=== PATIENT | male | born 1990 | race African-American/Black ===

== ENCOUNTER → 2017-08-10 | Outpatient (CLI) | payer OTHER ==
--- NOTE | 2017-08-10 12:08 | RADIOLOGY REPORT (SQ) ---
EXAM DESCRIPTION: ANKLE LEFT COMPLETE COMPLETED DATE/TIME: 08/10/2017 9:19 am REASON FOR STUDY: UNSPECIFIED INJURY OF LEFT ANKLE, INITIAL ENCOUNTER S99.912A UNSPECIFIED INJURY O F LEFT ANKLE, INITIAL ENCOUNTER COMPARISON: None. NUMBER OF VIEWS: Three views. TECHNIQUE: AP, lateral, and oblique radiographic images acquired of the left ankle. LIMITATIONS: None. FINDINGS: MINERALIZATION: Normal. BONES: No acute fracture or dislocation. No worrisome bone lesions. JOINTS: No effusions. SOFT TISSUES: No soft tissue swelling. No foreign body. OTHER: No other significant finding. IMPRESSION: NEGATIVE STUDY OF THE LEFT ANKLE. NO RADIOGRAPHIC EVIDENCE OF ACUTE INJURY. TECHNICAL DOCUMENTATION: JOB ID: [id number] [employer]- All Rights Reserved
== END ==
LOC: OD 09:00
PROVIDERS: ATTEND Nurse Practitioner Family
DX: S99.912A Unspecified injury of left ankle, initial encounter (principal)

== ENCOUNTER → 2017-12-03 | Outpatient (CLI) | payer BC ==
--- NOTE | 2017-12-03 11:17 | RADIOLOGY REPORT (SQ) ---
EXAM DESCRIPTION: FOOT RIGHT COMPLETE COMPLETED DATE/TIME: 12/03/2017 10:58 am REASON FOR STUDY: PAIN IN RIGHT FOOT M79.671 PAIN IN RIGHT FOOT COMPARISON: None. NUMBER OF VIEWS: Three views. TECHNIQUE: AP, lateral and oblique without weight bearing radiographic images acquired of the right foot. LIMITATIONS: None. FINDINGS: MINERALIZATION: Normal. BONES: No acute fracture or dislocation. No worrisome bone lesions. No significant osteophytes. JOINTS: No erosions. No alessandro-articular osteopenia. No chondrocalcinosis. SOFT TISSUES: No swelling. No calcifications. OTHER: No other significant finding. IMPRESSION: NEGATIVE STUDY OF THE RIGHT FOOT. NO ACUTE POST-TRAUMATIC CHANGES. NO EXPLANATION FOR PA IN. TECHNICAL DOCUMENTATION: JOB ID: [id number] [employer]- All Rights Reserved Reading location - IP/workstation name: [email or web address]
== END ==
LOC: OD 10:21
PROVIDERS: ATTEND Family Medicine
DX: M79.671 Pain in right foot (principal)

== ENCOUNTER 2019-09-13 17:27 | Emergency (ER) | payer BC, OTHER ==
[2019-09-13] MEDS ORDERED: DIPHENHYDRAMINE HCL 25 MG CAPSULE PO ONE (18:13)
[2019-09-13] MEDS ORDERED: METOCLOPRAMIDE HCL 10 MG TABLET PO ONE (18:14)
[2019-09-13] MEDS ORDERED: KETOROLAC TROMETHAMINE 60 MG/2 ML SDV IM ONE (18:14)
[2019-09-13] MEDS ORDERED: ACETAMINOPHEN 325 MG TABLET PO ONE (18:20)
--- NOTE | 2019-09-13 18:20 | ER Document Report ---
HPI - HPI Patient complains to provider of: headache Time Seen by Provider: 09/13/19 18:07 Onset: Yesterday Onset/Duration: Sudden, Persistent Quality of pain: Achy, Throbbing Context: 28-year-old male presents emergency department complaints of headache since yesterday. Reports he has taken ibuprofen without relief of symptoms. Reports he is sensitive to light. Denies trauma. Denies vomiting diarrhea reports fever today upon arrival. Last Motrin was taken at 12:00 noon. Patient denies history of migraines. Patient did not receive his flu vaccine this year. Patient also reports back pain. Reports he has his history of chronic back pain since he hurt his back 3 years ago playing soccer. Associated Symptoms: Nonproductive cough, Fever, Headache Exacerbated by: Denies Relieved by: Denies Similar symptoms previously: No Recently seen / treated by doctor: No Past Medical History - General Information source: Patient - Social History Smoking Status: Unknown if Ever Smoked Frequency of alcohol use: Occasional Drug Abuse: None Occupation: [employer] Family History: None Patient has suicidal ideation: No Patient has homicidal ideation: No - Medical History Medical History: Negative Surgical Hx: Negative Vertical Provider Document - CONSTITUTIONAL Agree With Documented VS: Yes Exam Limitations: No Limitations General Appearance: WD/WN, No Apparent Distress - INFECTION CONTROL TRAVEL OUTSIDE OF THE [place] IN LAST 30 DAYS: No - HEENT HEENT: Atraumatic, Normocephalic, PERRLA. negative: Conjuctival Injection, Pharyngeal Exudate, Pharyngeal Erythema - NECK Neck: Normal Inspection, Supple. negative: Thyroid Normal, Lymphadenopathy- Right - RESPIRATORY Respiratory: Breath Sounds Normal, No Respiratory Distress - CARDIOVASCULAR Cardiovascular: Regular Rate, Regular Rhythm - GI/ABDOMEN Gastrointestinal: Abdomen Soft, Abdomen Non-Tender - MUSCULOSKELETAL/EXTREMETIES Musculoskeletal/Extremeties: YULIA CORTÉS - NEURO Level of Consciousness: Awake, Alert, Appropriate Motor/Sensory: No Motor Deficit - DERM Integumentary: Warm, Dry Course - Re-evaluation Re-evalutation: 09/13/19 18:19 28-year-old male with no prior history presents emergency department with complaints with frontal headache since yesterday. Reports he is taken Motrin without relief of symptoms. Denies history of migraines. Denies trauma. Reports sensitivity to light. Influenza test ordered along with Benadryl Toradol and Reglan for his headache. Patient does have a low-grade temperature. 09/13/19 20:07 Influenza test negative. Patient has taken off his sunglasses reports he feels a little bit better. He was instructed on the importance of push fluids Motrin for the headache follow-up with his primary care provider. He verbalized understanding to all instructions. - Vital Signs Vital signs: Temp Pulse Resp BP Pulse Ox 101.3 F H 106 H 24 H 158/89 H 96 09/13/19 17:35 09/13/19 17:35 09/13/19 17:35 09/13/19 17:35 09/13/19 17:35 Discharge - Discharge Clinical Impression: Headache Condition: Stable Disposition: HOME, SELF-CARE Instructions: Antinausea Medication ([facility]), Use of Diphenhydramine, Headache ([facility]), Reglan ([facility]), Toradol Injection ([facility]) Additional Instructions: *You have been evaluated for a headache *Your flu test was negative *Follow up with a primary care provider within 1 week for recheck *Return to ED for worsening condition, changes, needs *Return to ED if not better in 24 hours Forms: Return to Work Referrals: SHARLA MANUEL DO [Primary Care Provider] - Follow up in 1 week
[2019-09-13 19:40] LABS: A TYPE INFLUENZA AG NEGATIVE (NEGATIVE); B INFLUENZA AG NEGATIVE (NEGATIVE)
[2019-09-13 20:42] VITALS: BP 142/74
== END 2019-09-13 20:20 | disposition home or self-care (01) ==
LOC: ER 17:27
DX: R51 Headache (principal); H53.149 Visual discomfort, unspecified; M54.9 Dorsalgia, unspecified; R05 Cough; R50.9 Fever, unspecified
CPT/HCPCS: 99284; 96372; 87804; J1885